=== PATIENT | male | born 1965 | race Caucasian/White ===

== ENCOUNTER 2020-05-24 17:37 | Emergency (ER) | payer OTHER, SELFPAY ==
[2020-05-24 17:52] VITALS: O2SAT 95
[2020-05-24 17:53] VITALS: BP 138/89; PULSE 99; RESP 14; TEMP 37; O2SAT 96; BMI 32.1
--- NOTE | 2020-05-24 17:59 | ED_ITS ---
HPI - Abdominal Pain General: Chief Complaint: Abdominal Pain Stated Complaint: BLOOD IN STOOL/ AB PAIN Time Seen by Provider: 05/24/20 17:59 Source: patient Mode of arrival: ambulatory Limitations: no limitations History of Present Illness: HPI narrative: Patient comes in today with some abdominal discomfort with diarrhea and noticeable blood in the stool. Patient states Thursday he noticed a temperature of 99.9 and malaise with some abdominal discomfort. He was seen at [facility] and had COVID testing on Thursday. Patient states throughout the week he has had some episodes of gastric discomfort and episodes of diarrhea. Today he became concerned because he noticed blood in the stool. Patient reports a history of hemorrhoids, colonoscopy 2 years ago that was clear, hypertension, HSV 2, depression, and seizure disorder. Patient sees Dr. Sutton. elicited complaint: abdominal pain Associated Symptoms: Reports hematochezia Review of Systems General: Reports: 10 or more systems reviewed and unremarkable except in HPI and below GI: Reports: abdominal pain and hematochezia [facility] ED PFSH: Medical History (Updated 05/24/20 @ 19:02 by ELLYN Rockwell) Dysthymia Essential (primary) hypertension GOLDIE on CPAP Family History Other Diabetes Parkinson disease Social History Smoking and tobacco status: never smoked Alcohol intake: current Alcohol intake frequency: few times a month Household members: spouse Housing: House Marital status: Current occupational status: employed Physical Exam Const: COMMON NORMALS: no acute distress and patient oriented x3 GENERAL APPEARANCE: cooperative HENMT: COMMON NORMALS: normocephalic and Normal external nose present HEAD & SCALP: normal to inspection and normocephalic NOSE: Normal external nose present MOUTH: Normal oral and palatal mucosa present Eye: GENERAL EYE: appearance normal, both eyes and all related structures Neck/C-Spine: COMMON NORMALS: full ROM Chest: COMMONS NORMALS: normal inspection of the chest Resp: COMMON NORMALS: normal respiratory effort EFFORT & INSPECTION: Yes able to speak in complete sentences Cardio: COMMON NORMALS: regular rate and regular rhythm RATE: regular rate RHYTHM: regular rhythm GI: COMMON NORMALS: Soft to palpation PALPATION: Yes Soft to palpation and Yes Tenderness to palpation present (GI) (mild general) RECTAL EXAM: Yes normal sphincter tone, Yes heme positive stool trace and No fecal impaction : COMMON NORMALS: Yes no CVA tenderness BLADDER/KIDNEY EXAM: Yes no CVA tenderness Back/Pelvis: COMMON NORMALS: no CVA tenderness and thoracic and lumbar spine normal to inspection Extremity: COMMON NORMALS: normal to inspection Neuro: COMMON NORMALS: patient oriented x3 and moves all extremities Psych: COMMON NORMALS: mental status grossly normal and cooperative Skin: COMMON NORMALS: no rashes or lesions noted GENERAL SKIN EXAM: no rashes or lesions noted Course Vital Signs: Vital signs: Vital Signs Temperature 98.6 F 05/24/20 17:53 Pulse Rate 99 05/24/20 17:53 Respiratory Rate 14 05/24/20 17:53 Blood Pressure 138/89 05/24/20 17:53 Pulse Oximetry 96 05/24/20 17:53 MDM - Abdominal Pain MDM Narrative: Medical decision making narrative: Patient comes in with some low-grade fever and some diarrhea with some blood in the stool. Patient noticed blood today in the stool after being ill for about 4 to 5 days. On exam abdomen soft nontender. Respirations are even lungs are clear to auscultation. Vital signs are normal. Differential diagnosis includes but not limited to diverticulitis, tumor or mass, infectious colitis. CT scan of the abdomen pelvis noted colitis. Laboratory values noted no anemia and normal metabolic panel. Reviewed exam with patient recommended treatment for colitis and stool collection for further evaluation. Recommend follow-up with primary care for further treatment. Lab Data: Labs: Lab Results 05/24/20 05/24/20 Range/Units 18:16 18:16 WBC 9.7 (4.0-10.0) 10^3/ uL RBC 4.84 (4.1-5.3) 10^6/u L Hgb 16.1 (11.7-16.6) g/dL Hct 47.9 (42.0-52.0) % MCV 99.0 H (80-94) fL MCH 33.3 (28.0-34.0) pg MCHC 33.6 (30.0-36.0) g/dL RDW 11.8 L (12.1-15.1) % Plt Count 207 (130-400) 10^3/c mm MPV 10.4 (7.4-10.4) fL Neut % (Auto) 73.9 % Lymph % (Auto) 14.2 % [place] % (Auto) 10.6 % Eos % (Auto) 0.5 % Baso % (Auto) 0.5 % Neut # (Auto) 7.17 (1.8-7.7) 10^3/u L Lymph # (Auto) 1.4 (0.8-4.8) 10^3/u L [place] # (Auto) 1.0 H (0.2-0.9) 10^3/u L Eos # (Auto) 0.1 (0.0-0.8) 10^3/u L Baso # (Auto) 0.1 (0.0-0.1) 10^3/u L Nucleated RBC % (a uto) 0 % Nucleated RBCs # 0.0 /100WBC Sodium 135 L (136-145) mmol/L Potassium 3.8 (3.5-5.1) mmol/L Chloride 100 (98-107) mmol/L Carbon Dioxide 25 (22-29) mmol/L Anion Gap 13.8 (5-19) BUN 15 (6-20) mg/dL Creatinine 1.2 (0.7-1.2) mg/dL GFR Calculation 62.4 L (90-130) mL/min Glucose 103 (65-115) mg/dL Calculated Osmolal ity 277 L (285-295) mOsm/k g Calcium 8.8 (8.5-10.5) mg/dL Total Bilirubin 0.5 (0.15-1.2) mg/dL AST 15 (0-40) U/L ALT 17 (0-41) U/L Alkaline Phosphata se 83 (40-130) IU/L Total Protein 7.0 (6.6-8.7) g/dL Albumin 4.1 (3.5-5.2) g/dL Globulin 2.9 (1.3-4.6) g/dL Lipase 23 (13-60) U/L Discharge Plan Discharge Patient Disposition: Home Clinical Impression: Colitis, acute Condition: Stable Prescriptions: New ciprofloxacin HCl 500 mg tablet 500 mg PO BID Qty: 14 RF: 0 metronidazole 500 mg tablet 500 mg PO TID Qty: 21 RF: 0 No Action zolpidem [Ambien] 10 mg tablet 10 mg PO .AT BEDTIME RF: 0 valacyclovir [Valtrex] 1 gram tablet 1,000 mg PO DAILY Qty: 30 RF: 3 losartan 100 mg tablet 100 mg PO DAILY Qty: 90 RF: 3 duloxetine 30 mg capsule,delayed release(DR/EC) 30 mg PO .AT BEDTIME Qty: 90 RF: 3 primidone 250 mg tablet 250 mg PO TID Qty: 90 RF: 3 Discharge Orders: Discharge Order (Routine); Ordered 05/24/20 Ordered By: Karel Suresh Referrals: PHYSICAL THERAPY SPECILIST [facility], [Primary Care Provider] - Discharge Diet: Usual diet Discharge Activity: Increase activity as tolerated Patient Instructions: Infectious Colitis (ED) Activity Restrictions/Additional Instructions: Drink plenty of fluids. Take antibiotics as directed. Follow-up with primary care in 1 week. Return to the emergency room for worsening symptoms or new concerns. 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
--- NOTE | 2020-05-24 18:00 | CTR_ITS ---
PROCEDURE INFORMATION: Exam: CT Abdomen And Pelvis With Contrast Exam date and time: 05/24/2020 6:03 PM Age: 55 years old Clinical indication: Fever and other: Blood in stool; Abdominal pain; Additional info: Blood in stool, abd pain, fever TECHNIQUE: Imaging protocol: Computed tomography of the abdomen and pelvis with intravenous contrast. Radiation optimization: All CT scans at this facility use at least one of these dose optimization techniques: automated exposure control; mA and/or kV adjustment per patient size (includes targeted exams where dose is matched to clinical indication); or iterative reconstruction. Contrast material: OMNI 300; Contrast volume: 95 ml; Contrast route: INTRAVENOUS (IV); COMPARISON: No relevant prior studies available. RADIATION DOSE METRICS: Total DLP (mGy-cm): 1099.35 FINDINGS: Liver: Normal. No mass. Gallbladder and bile ducts: Solitary gallstone within the gallbladder. Pancreas: Normal. No ductal dilation. Spleen: Normal. No splenomegaly. Adrenals: Normal. No mass. Kidneys and ureters: Multiple left renal simple cysts with the largest measuring 12 cm in diameter. 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 Normal variant. Stomach and bowel: Moderate bowel wall thickening in the right colon consistent with moderate infectious colitis versus microvascular colitis versus inflammatory bowel disease. Moderate left colonic diverticulosis. Appendix: No evidence of appendicitis. Intraperitoneal space: Unremarkable. No free air. No significant fluid collection. Vasculature: Normal superior mesenteric artery and vein. Calcification of the abdominal aorta and/or iliac arteries consistent with atherosclerotic vessel disease. Lymph nodes: Unremarkable. No enlarged lymph nodes. Bladder: Unremarkable as visualized. Reproductive: Unremarkable as visualized. Bones/joints: Mild multilevel spine degenerative changes including degenerative disc disease, spondylosis and facet degenerative changes. Soft tissues: Unremarkable. CT/CT abdomen pelvis w con* [id number] IMPRESSION: Moderate bowel wall thickening in the right colon consistent with moderate infectious colitis versus microvascular colitis versus inflammatory bowel disease. COMMENTS: Consistent with the [employer]'s Incidental Findings Committee white paper (J Am Mandie Radiol 2018): Any incidental renal lesion less than 1.0 cm or classified as too small to characterize, or any incidental cystic renal lesion characterized as simple-appearing, is likely benign. No follow-up imaging is recommended for these lesions per consensus recommendations based on imaging criteria. Radiation Dose CTDIVOL = (mGy): DLP = 1099.35 (mGy-cm)
[2020-05-24 18:23] LABS: Basophils # 0.1 10^3/uL (0.0-0.1); Basophils % 0.5 %; Eosinophils # 0.1 10^3/uL (0.0-0.8); Eosinophils % 0.5 %; Hematocrit 47.9 % (42.0-52.0); Hemoglobin 16.1 g/dL (11.7-16.6); Lymphocytes # 1.4 10^3/uL (0.8-4.8); Lymphocytes % 14.2 %; Mean Corpuscular HGB Conc 33.6 g/dL (30.0-36.0); Mean Corpuscular Hemoglobin 33.3 pg (28.0-34.0); Mean Platelet Volume 10.4 fL (7.4-10.4); Monocytes % 10.6 %; Neutrophils # 7.17 10^3/uL (1.8-7.7); Neutrophils % 73.9 %; Nucleated Red Blood Cells % 0 %; Platelet Count 207 10^3/cmm (130-400); Red Blood Count 4.84 10^6/uL (4.1-5.3); Red Cell Distribution Width 11.8 % (12.1-15.1); White Blood Count 9.7 10^3/uL (4.0-10.0)
[2020-05-24] MEDS: iohexol 300 mg/mL 100 mL Btl 95 ML IV (18:25)
[2020-05-24 18:51] LABS: Alanine Aminotransferase 17 U/L (0-41); Albumin Level 4.1 g/dL (3.5-5.2); Alkaline Phosphatase 83 IU/L (40-130); Anion Gap 13.8 (5-19); Aspartate Amino Transferase 15 U/L (0-40); Blood Urea Nitrogen 15 mg/dL (6-20); Calcium 8.8 mg/dL (8.5-10.5); Carbon Dioxide 25 mmol/L (22-29); Chloride 100 mmol/L (98-107); Creatinine Clr Calc Pharmacy 83.4903; Globulin 2.9 g/dL (1.3-4.6); Glomerular Filtration Rate 62.4 mL/min (90-130); Glucose 103 mg/dL (65-115); Lipase 23 U/L (13-60); Osmolality Calculated 277 mOsm/kg (285-295); Potassium 3.8 mmol/L (3.5-5.1); Sodium 135 mmol/L (136-145); Total Bilirubin 0.5 mg/dL (0.15-1.2)
[2020-05-24] MEDS: metroNIDAZOLE 500 MG Tablet PO (19:16)
[2020-05-24] MEDS: ciprofloxacin 500 mg Tablet PO (19:16)
[2020-05-24 19:41] VITALS: BP 142/78; PULSE 84; RESP 17; O2SAT 95
== END 2020-05-24 19:42 | disposition home or self-care (01) ==
PROVIDERS: Emergency Provider Nurse Practitioner Family; PCP Occupational Therapy Assistant
DX: K52.9 Noninfective gastroenteritis and colitis, unspecified (principal); I10 Essential (primary) hypertension
CPT/HCPCS: 12345; 74177; 80053; 83690; 85025; 99282; 99283; Q9967

== ENCOUNTER 2022-07-20 20:41 | Emergency (ER) | payer OTHER, SELFPAY ==
[2022-07-20 21:02] VITALS: BP 160/80; PULSE 94; RESP 16; TEMP 36.9; O2SAT 97
[2022-07-20 21:10] VITALS: RESP 16
--- NOTE | 2022-07-20 21:10 | PC.NURSE ---
assumed care of patient at this time.
--- NOTE | 2022-07-20 21:15 | XRR_ITS ---
PROCEDURE INFORMATION: Exam: XR Right Tibia and Fibula Exam date and time: 07/20/2022 9:33 PM Age: 57 years old Clinical indication: Injury or trauma; Other: Object hit lower leg; Blunt trauma; Right TECHNIQUE: Imaging protocol: Radiologic exam of the Right tibia and fibula. Views: 2 views. COMPARISON: No relevant prior studies available. FINDINGS: Bones/joints: Normal. Soft tissues: Normal. XR/XR tibia fibula RT 2V [id number] IMPRESSION: No acute findings.
--- NOTE | 2022-07-20 21:15 | W.ED.EXTPRO ---
HPI - Extremity Problem General: Chief complaint: Extremity Injury, Lower Stated complaint: right leg pain Time Seen by Provider: 07/20/22 20:49 Source: patient Mode of arrival: ambulatory Limitations: no limitations History of Present Illness: 57-year-old male states he cut his right lower leg smashed between a piece of farm equipment in a trailer states that it hit him in his right lower leg on the lateral portion. He states he initially had some pain but his pain is worsened since the event and does have some pain with bearing weight. He denies any other injuries. Associated symptoms: Deny chest pain, fever(s) or rash Review of Systems Const: Denies: fever(s), chills, body aches or change in appetite Eyes: Denies: blurry vision or eye discomfort ENMT: Denies: throat pain or dental pain Card: Denies: chest pain Resp: Denies: dyspnea GI: Denies: abdominal pain, nausea, vomiting or diarrhea : Denies: dysuria Musc: Reports: extremity pain; Denies: neck pain or back pain Skin/Breast: Denies: rash Neuro: Denies: headache(s) Psych: Denies: depression Simon/Lymph: Denies: easy bruising All/Imm: Denies: urticaria PFSH ED PFSH: Medical History (Updated 07/20/22 @ 21:44 by Emi Marrero MD) Dysthymia Essential (primary) hypertension GOLDIE on CPAP Family History Other Diabetes Parkinson disease Social History Smoking and tobacco status: never smoked Alcohol intake: current Alcohol intake frequency: few times a month Household members: spouse Housing: House Marital status: Current occupational status: employed Physical Exam Const: COMMON NORMALS: no acute distress, patient oriented x3 and healthy appearing HENMT: COMMON NORMALS: normocephalic and atraumatic HEAD & SCALP: normocephalic and atraumatic Eye: COMMON NORMALS: Equal, round and reactive pupils present and EOMs intact bilaterally PUPIL: Yes Equal, round and reactive pupils present Neck/C-Spine: COMMON NORMALS: full ROM and supple Chest: COMMONS NORMALS: normal inspection of the chest and normal palpation of entire chest wall Resp: COMMON NORMALS: normal respiratory effort, No retractions, No use of accessory muscles and clear to auscultation bilaterally AUSCULTATION: clear to auscultation bilaterally Cardio: COMMON NORMALS: regular rate, regular rhythm and No murmurs present (Cardio) RATE: regular rate RHYTHM: regular rhythm GI: COMMON NORMALS: Normal to inspection, nondistended, normoactive bowel sounds present, Soft to palpation, non-tender and no masses PALPATION: Yes Soft to palpation Extremity: NARRATIVE EXTREMITY EXAM: contusion and tenderness to right lateral lower leg Neuro: COMMON NORMALS: patient oriented x3, moves all extremities and no focal motor deficits Psych: COMMON NORMALS: mental status grossly normal, Normal thought process present and cooperative THOUGHT PROCESS: Normal thought process present Skin: COMMON NORMALS: no rashes or lesions noted and no wounds GENERAL SKIN EXAM: no rashes or lesions noted Course Vital Signs: Vital signs: Vital Signs Temperature 98.4 F 07/20/22 21:02 Pulse Rate 94 07/20/22 21:02 Respiratory Rate 16 07/20/22 21:10 Blood Pressure 160/80 07/20/22 21:02 Pulse Oximetry 97 07/20/22 21:02 Oxygen Delivery Me thod 07/20/22 21:02 MDM - Extremity (Nontraumatic) Medical Decision Making Patient presents here with a leg contusion x-ray is normal patient stable for discharge she is return if worsening. Discharge Plan Discharge Patient Disposition: Home Clinical Impression: Contusion of leg, right Qualifiers: Encounter type: initial encounter Qualified Code(s): S80.11XA - Contusion of right lower leg, initial encounter Condition: Stable Prescriptions: New Naprosyn 500 mg tablet 500 mg PO BID PRN (Reason: pain) Qty: 20 0RF No Action levocetirizine [Xyzal] 5 mg tablet 5 mg PO DAILY Qty: 30 3RF losartan-hydrochlorothiazide [Hyzaar] 100-12.5 mg tablet 1 tab PO DAILY Qty: 90 3RF duloxetine 30 mg capsule,delayed release(DR/EC) See Rx Instructions .ROUTE .COMPLEX Qty: 90 3RF Dose Instruction: TAKE 1 CAPSULE BY MOUTH EVERYDAY AT BEDTIME Rx Instructions: TAKE 1 CAPSULE BY MOUTH EVERYDAY AT BEDTIME valacyclovir 1 gram tablet See Rx Instructions .ROUTE .COMPLEX Qty: 90 1RF Dose Instruction: TAKE 1 TABLET BY MOUTH EVERY DAY Rx Instructions: TAKE 1 TABLET BY MOUTH EVERY DAY primidone 250 mg tablet See Rx Instructions .ROUTE .COMPLEX Qty: 270 1RF Dose Instruction: TAKE 1 TABLET BY MOUTH THREE TIMES A DAY Rx Instructions: TAKE 1 TABLET BY MOUTH THREE TIMES A DAY Discharge Orders: Discharge ED (Routine); Ordered 07/20/22 Ordered By: Emi Marrero Referrals: Mickey Sutton MD [Primary Care Provider] - Discharge Diet: Advance as tolerated Discharge Activity: Resume usual activity Patient Instructions: Contusion in Adults (ED) Coding Level of Care Code ED 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
[2022-07-20] MEDS: naproxen 500 mg Tablet PO (21:18)
--- NOTE | 2022-07-20 21:19 | PC.NURSE ---
RLE elevated to assist with comfort and swelling.
[2022-07-20 21:52] VITALS: BP 149/82; PULSE 89; RESP 15; TEMP 36.7; O2SAT 95
== END 2022-07-20 21:56 | disposition home or self-care (01) ==
PROVIDERS: Emergency Provider Emergency Medicine; PCP Internal Medicine
DX: S80.11XA Contusion of right lower leg, initial encounter (principal); I10 Essential (primary) hypertension; W23.0XXA Caught, crushed, jammed, or pinched between moving objects, initial encounter
CPT/HCPCS: 73590; 99283

== ENCOUNTER → 2022-08-05 17:51 | Outpatient (BNVA) | payer OTHER, SELFPAY | PROVIDERS: PCP Internal Medicine; Visit Provider Registered Nurse Neonatal Intensive Care | DX: S69.91XA Unspecified injury of right wrist, hand and finger(s), initial encounter (principal); W23.0XXA Caught, crushed, jammed, or pinched between moving objects, initial encounter | CPT/HCPCS: 73110 ==